=== PATIENT | male | born 1965 | race Caucasian/White ===

== ENCOUNTER 2017-01-09 09:57 | Emergency (ER) | payer MEDICARE, OTHER, MEDICAID ==
[2017-01-09] MEDS ORDERED: ALBUTEROL NEB 2.5 MG/3 ML INH STA (11:08)
[2017-01-09] MEDS ORDERED: BENZONATATE 100 MG CAPSULE PO STA (11:09)
[2017-01-09] MEDS ORDERED: CEPHALEXIN 250 MG CAPSULE PO STA (11:09)
[2017-01-09] MEDS ORDERED: CIPROFLOXACIN 250 MG TABLET PO ONE (11:13)
[2017-01-09] MEDS ORDERED: BENZONATATE 100 MG CAPSULE PO ONE (11:13)
[2017-01-09] MEDS ORDERED: CEPHALEXIN 250 MG CAPSULE PO ONE (11:16)
[2017-01-09] MEDS ORDERED: ALBUTEROL NEB 2.5 MG/3 ML INH ONE (11:46)
[2017-01-09] MEDS ORDERED: ACETAMINOPHEN 325 MG TABLET PO STA (12:54)
[2017-01-09] MEDS ORDERED: ONDANSETRON 4 MG/2 ML VIAL IVP STA (12:54)
[2017-01-09] MEDS ORDERED: ACETAMINOPHEN 325 MG TABLET PO ONE (13:01)
[2017-01-09] MEDS ORDERED: ONDANSETRON ODT 4 MG TABLET ONE (13:01)
== END 2017-01-09 13:09 | disposition home or self-care (01) ==
DX: J06.9 Acute upper respiratory infection, unspecified (principal); J18.9 Pneumonia, unspecified organism; E11.9 Type 2 diabetes mellitus without complications; Z79.4 Long term (current) use of insulin; Z99.2 Dependence on renal dialysis; Z79.82 Long term (current) use of aspirin
CPT/HCPCS: 36415; 71020; 80053; 83690; 83735; 85025; 94640; 96374; 99283; A9270; J7613; Q0162